=== PATIENT | male | born 1975 | race American Indian/Alaskan Native ===

== ENCOUNTER 2019-12-19 16:49 | Emergency (ER) | payer SELFPAY ==
[2019-12-19 17:03] VITALS: BP 160/89
--- NOTE | 2019-12-19 20:19 | Emergency Department Report ---
ED General Adult HPI - General Chief complaint: Medical Clearance Stated complaint: GET OFF DRUGS/ALCOHOL PUI?: No Time Seen by Provider: 12/19/19 20:18 Source: patient, RN notes reviewed Mode of arrival: Ambulatory Limitations: No Limitations - History of Present Illness Initial comments: The patient was evaluated in the emergency department for symptoms described in the history of present illness. He/she was evaluated in the context of the global COVID-19 pandemic, which necessitated consideration that the patient might be at risk for infection with the virus that causes COVID-19. Institutional protocols and algorithms that pertain to the evaluation of patients at risk for COVID-19 are in a state of rapid change based on information released by regulatory bodies including the CDC and federal and state organizations. These policies and algorithms were followed during the patient's care in the emergency department. Please note that these policies, procedures and recommendations changed on a rapid basis. The patient is a pleasant, calm and cooperative 44-year-old gentleman who is not known to myself previously, typically follows at the [facility], with a history of hypertension, takes lisinopril and amlodipine, presenting to the ER today with a complaint of painless request for alcohol and cocaine detox. He denies physical pain at this time, his last cocaine and alcohol ingestion was over 24 hours ago, he states he has not tried to overdose, he denies sensation of wanting to withdraw or feeling like he is going to withdrawal, he has no nausea, vomiting, diarrhea, no headache, neck pain, chest pain, abdominal pain, shortness of breath, and he is not homicidal or suicidal. He states he is motivated to quit, and he just needs resources to follow-up with. -: Gradual Improves with: none Worsens with: none Associated Symptoms: denies other symptoms - Related Data Previous Rx's Medication Instructions Recorded Last Taken Type Multivitamin with Folic Acid [[facility] 400 mcg PO QDAY #30 tablet 12/19/19 Unknown Rx One Daily Essential Tablet] chlordiazePOXIDE [Librium] 25 mg PO Q6H PRN #25 capsule 12/19/19 Unknown Rx Allergies Allergy/AdvReac Type Severity Reaction Status Date / Time No Known Allergies Allergy Unverified 12/19/19 16:59 ED Review of Systems ROS: Stated complaint: GET OFF DRUGS/ALCOHOL Other details as noted in HPI Comment: All other systems reviewed and negative ED Past Medical Hx - Past Medical History Previous Medical History?: Yes Hx Hypertension: Yes Hx Psychiatric Treatment: Yes (Detox for Alcohol and Cocaine) - Surgical History Past Surgical History?: No - Social History Smoking Status: Current Every Day Smoker Substance Use Type: Alcohol, Cocaine, Prescribed - Medications Home Medications: Home Medications Medication Instructions Recorded Confirmed Last Taken Type Multivitamin with Folic Acid [[facility] 400 mcg PO QDAY #30 tablet 12/19/19 Unknown Rx One Daily Essential Tablet] chlordiazePOXIDE [Librium] 25 mg PO Q6H PRN #25 capsule 12/19/19 Unknown Rx ED Physical Exam - General Limitations: No Limitations General appearance: alert, in no apparent distress - Head Head exam: Present: atraumatic, normocephalic - Eye Eye exam: Present: normal appearance, PERRL, EOMI. Absent: nystagmus - ENT ENT exam: Present: normal exam, normal orophraynx, mucous membranes moist, normal external ear exam, other (No tongue fasciculations are noted) - Neck Neck exam: Present: normal inspection, full ROM. Absent: tenderness, meningismus - Respiratory Respiratory exam: Present: normal lung sounds bilaterally. Absent: respiratory distress, wheezes, rales, rhonchi, stridor, decreased breath sounds - Cardiovascular Cardiovascular Exam: Present: regular rate, normal rhythm, normal heart sounds. Absent: bradycardia, tachycardia, irregular rhythm, systolic murmur, diastolic murmur, rubs, gallop - GI/Abdominal GI/Abdominal exam: Present: soft. Absent: distended, tenderness, guarding, rebound, rigid, pulsatile mass - Rectal Rectal exam: Present: deferred - Extremities Exam Extremities exam: Present: normal inspection, full ROM, other (2+ pulses noted in the bilateral upper and lower extremities. There is no palpable cord. negative Homans sign. Muscular compartments are soft. The pelvis is stable.). Absent: pedal edema, calf tenderness - Back Exam Back exam: Present: normal inspection, full ROM. Absent: tenderness, CVA tenderness (R), CVA tenderness (L), paraspinal tenderness, vertebral tenderness - Neurological Exam Neurological exam: Present: alert, oriented X3, normal gait, other (No facial droop. Tongue midline. Extraocular movements intact bilaterally. Facial sensation intact to light touch in V1, V2, V3 distribution bilaterally. 5 and a 5 strength in 4 extremities. Sensation intact to light touch in 4 extremities.). Absent: motor sensory deficit - Psychiatric Psychiatric exam: Present: normal affect, normal mood. Absent: homicidal ideation, suicidal ideation - Skin Skin exam: Present: warm, dry, intact, normal color. Absent: rash ED Course Vital Signs 12/19/19 17:02 Temperature 98.6 F Pulse Rate 91 H Respiratory 18 Rate Blood Pressure 160/89 O2 Sat by Pulse 100 Oximetry ED Medical Decision Making - Medical Decision Making Vital Signs 12/19/19 17:02 Temperature 98.6 F Pulse Rate 91 H Respiratory 18 Rate Blood Pressure 160/89 O2 Sat by Pulse 100 Oximetry Differential diagnosis, including but not limited to: Chronic hypertension, general medical evaluation, referral for cocaine and alcohol detox Assessment and plan: 44-year-old gentleman, who is pleasant, calm and cooperative, who is afebrile with reassuring vital signs with the exception of elevated blood pressure (he is currently on antihypertensive therapy, he is not acutely decompensated, please reference the [employer] clinical policy on asymptomatic hypertension), who has no acute medical complaints at this time, who is not homicidal, not suicidal, clinically sober, does not meet criteria for 1013, endorses no physical pain or acute medical complaints, who endorses that he has not attempted to overdose on anything, with a request for detox. He is not actively withdrawing at this time. He will be started on as needed Librium, we will give him prescription for multivitamin, and I have provided the patient with referral/resources for outpatient follow-up for detox. The patient does not appear to have an emergent medical or psychiatric condition at this time. Critical care attestation.: If time is entered above; I have spent that time in minutes in the direct care of this critically ill patient, excluding procedure time. ED Disposition Clinical Impression: General medical exam, History of alcohol use, History of cocaine use Disposition: DC-01 TO HOME OR SELFCARE Is pt being admited?: No Does the pt Need Aspirin: No Condition: Stable Additional Instructions: Take the medications as prescribed/needed/directed. Minimize/avoid consumption of alcohol, cocaine and recreational drugs. Long-term consumption of the aforementioned may cause addiction, disability, paralysis, loss of quality of life. Continue current outpatient medications. Follow-up with your primary care doctor within the next 4 to 6 weeks. At this point in time, patient does not have an immediate medical contraindication to detox/psychiatric evaluation, consultation and placement if necessary. For the patient's convenience, local outpatient detox facilities have been listed as follows, and also, the patient will be given a handout of substance abuse programs. Please return to the emergency room right away with new pain, worsening pain, migration of pain, projectile vomiting, change in mental status, confusion, inability to tolerate liquid feeds, homicidality, suicidality, new, worsened or different symptoms not present on the initial emergency room evaluation. [facility] in [place], [place] COV info: [email or web address] Address: [address], [place] [address] Hours: Open 24 hours [facility] hospital in the [place], [place] info: cdc.gov Get online care: [email or web address] Address: [address] [place] [address] , [place] [address] Hours: Open 24 hours [facility] in the [place], [place] Address: [address] [place] [id number] Prescriptions: Multivitamin with Folic Acid [[facility] One Daily Essential Tablet] 400 mcg PO QDAY #30 tablet chlordiazePOXIDE [Librium] 25 mg PO Q6H PRN #25 capsule PRN Reason: Alcohol Withdrawal Referrals: [facility] [Provider Group] - 3-5 Days
== END 2019-12-19 20:40 | disposition home or self-care (01) ==
LOC: ED 16:49
DX: I10 Essential (primary) hypertension (principal); F10.21 Alcohol dependence, in remission; F14.10 Cocaine abuse, uncomplicated; Z00.00 Encounter for general adult medical examination without abnormal findings; F17.200 Nicotine dependence, unspecified, uncomplicated; Z79.899 Other long term (current) drug therapy
CPT/HCPCS: 99282